=== PATIENT | male | born 1980 | race Caucasian/White ===

== ENCOUNTER 2018-06-01 15:31 | Emergency (ER) | payer OTHER ==
[~2018-06-01] VITALS: Ht 182.9 cm; Wt 93.0 kg
[2018-06-01] MEDS ORDERED: PANADOL EXTRA500 MG (15:43)
== END 2018-06-01 17:01 | disposition home or self-care (01) ==
LOC: ER 15:31
DX: K64.4 Residual hemorrhoidal skin tags (principal)